=== PATIENT | male | born 1950 | race Caucasian/White ===

== ENCOUNTER 2025-05-23 08:12 | Emergency (ER) | payer MEDICARE, OTHER, SELFPAY ==
[2025-05-23 08:15] VITALS: BP 147/91
--- NOTE | 2025-05-23 09:09 | ED.GENMED ---
History of Present Illness
<Teddy Lindo MD, Resident - Last Filed: 05/23/25 15:44>
General
Chief Complaint: Musculo-Skeletal Complaint
Time Seen by Provider: 05/23/25 09:09
History of Present Illness
History of Present Illness:
75 yo M PMH PFO, stroke in 2022 with no residual deficits presenting after slipping on ice, falling entirely on right side, did not break the fall with his right arm, while shoveling. denies any prodromal symptoms of palpitations, presyncope,
syncope or focal weakness.
denies headstrike, denies syncope. denies neck pain, back pain. or any focal tenderness in right wrist or elbow or knee
denies headaches
he is reporting ROM deficits in right shoulder, he reports minimal pain at rest in shoulder and hip, mainly with movement.
the incident happend thursday, but he is coming in today because ROM has not improved, and family noticed that his right leg bends differently when seated. he is able to ambulate, but family reports not well.
takes baby aspirin daily, but denies other blood thinners (apixaban, rivaroxaban, clopidogrel etc).
<Zac Musa MD - Last Filed: 05/23/25 12:59>
General
Source: patient
Exam Limitations: none
Nursing documentation reviewed up to this point in time: agreed with
Past History
<Teddy Lindo MD, Resident - Last Filed: 05/23/25 15:44>
Past History
ED Past Medical History: CVA (stroke without residual deficits 2022) and Other (PFO)
Review of Systems
<Teddy Lindo MD, Resident - Last Filed: 05/23/25 15:44>
Review of Systems
Constitutional: Reports no symptoms
EENT: Reports no symptoms
Respiratory: Reports no symptoms
Cardiac: Reports no symptoms
ABD/GI: Reports no symptoms
Musculoskeletal: Reports joint pain (R shoulder and R hip)
Neurological: Reports no symptoms
Phy Exam
<Teddy Lindo MD, Resident - Last Filed: 05/23/25 15:44>
Physical Exam
Physical Exam:
VS: 147/91; HR 65
General: no acute distress
CV: no murmurs on my exam
Pulm: CTAB
Abd: no tenderness to palaption
MSK: tenderness to palpation over right coracoid process; tenderness to palpation over right hip with overlying bruise visible. shoulder ROM limited: cannot fully externally rotate right shoulder, cannot abduct right shoulder beyond 90 degrees.
right leg at rest is deviated to the right, and right leg is 4/5 strength compared to left leg 5/5 strength to hip flexion. no deficits to at knee, ankle, elbow, wrist joints. no sensory deficits grossly appreciated. no tenderness to palpation over
the neck, no tenderness to palpation of clavicles b/l
Course
<Teddy Lindo MD, Resident - Last Filed: 05/23/25 15:44>
Orders/Labs/Results
Orders:
Orders
05/23/25 08:19
Shoulder, Right, Trauma [CR Shoulder, Trauma - Right] Urgent
Comment:
Reason For Exam: fall, limited ROM
05/23/25 08:20
Hip, Right 2-3 Views [CR Hip - RT w/wo Pel 2-3 Vw*] Urgent
Comment: limited ROM
Reason For Exam: pain after a fall
Include a pelvis x-ray?: Yes
05/23/25 10:07
Acetaminophen [Tylenol] 650 mg PO NOW STA
05/23/25 10:08
CT Pelvis W/o Iv Contrast Urgent
Comment:
Reason For Exam: continued R hip pain after fall
05/23/25 12:37
Physical Therapy Consult [Pt Eval And Treat] Urgent
Activity Level: Ambulate
Vital Signs
Initial and Last Documented VS:
Initial Vital Signs
Temp Pulse Resp BP Pulse Ox
98.2 F 65 20 147/91 98
05/23/25 08:15 05/23/25 08:15 05/23/25 08:15 05/23/25 08:15 05/23/25 08:15
Last Documented Vital Signs
Temp Pulse Resp BP Pulse Ox
98.2 F 67 17 137/92 97
05/23/25 08:15 05/23/25 12:45 05/23/25 12:45 05/23/25 12:00 05/23/25 12:45
<Zac Musa MD - Last Filed: 05/23/25 12:59>
Orders/Labs/Results
Orders:
Orders
05/23/25 08:19
Shoulder, Right, Trauma [CR Shoulder, Trauma - Right] Urgent
Comment:
Reason For Exam: fall, limited ROM
05/23/25 08:20
Hip, Right 2-3 Views [CR Hip - RT w/wo Pel 2-3 Vw*] Urgent
Comment: limited ROM
Reason For Exam: pain after a fall
Include a pelvis x-ray?: Yes
05/23/25 10:07
Acetaminophen [Tylenol] 650 mg PO NOW STA
05/23/25 10:08
CT Pelvis W/o Iv Contrast Urgent
Comment:
Reason For Exam: continued R hip pain after fall
05/23/25 12:37
Physical Therapy Consult [Pt Eval And Treat] Urgent
Activity Level: Ambulate
Vital Signs
Initial and Last Documented VS:
Initial Vital Signs
Temp Pulse Resp BP Pulse Ox
98.2 F 65 20 147/91 98
05/23/25 08:15 05/23/25 08:15 05/23/25 08:15 05/23/25 08:15 05/23/25 08:15
Last Documented Vital Signs
Temp Pulse Resp BP Pulse Ox
98.2 F 67 17 137/92 97
05/23/25 08:15 05/23/25 12:45 05/23/25 12:45 05/23/25 12:00 05/23/25 12:45
<Teddy Lindo MD, Resident - Last Filed: 05/23/25 15:44>
MDM/Problems Addressed
Differential Diagnosis Includes:
rotator cuff tendinopathy, shoulder dislocation, hip dislocation or fracture, clavicular fracture, trochanteric bursitis
MDM/Problems Addressed:
75 yo M presenting with what appears to be a mechanical fall by slipping on ice. fell on his right side while shoveling, did not break his fall with his hand. no prodromal symptoms.
he has deficits to range of motion at the right shoulder and his right leg appears to sit out of alignment.
minimal pain at rest, mainly with motion/movement.
social: he lives with family and expressed that he will have support
Plan:
x-ray right hip: degenerative changes, no evidence of cortical fracture
x-ray right shoulder: degenerative changes, no acute osseous abnormality
Update:
to manage the shoulder pain, a sling with ice/rest/nsaids/physical therapy would be appropriate. Sling for the patient has been provided.
to manage the hip pain, patient and family are concerned about his ability to walk, CT pelvis w/o IV contrast ordered to evaluate for occult fracture
pain control: patient prefers only tylenol for now.
Update:
CT pelvis w/o IV contrast: no findings to suggest recent right hip fracture.
Physical therapy consulted and reports that patient was able to ambulate without difficulty, does not need assistive device. Appropriate to discharge.
Patient is medically stable for discharge and patient is okay to be discharged. Patient and family counselled to follow-up with PCP outpatient.
<Teddy Lindo MD, Resident - Last Filed: 05/23/25 15:44>
*Pulse Oximetry
SaO2: 98
Oxygen Mode of Delivery: Room air
Patient hypoxic: no
*Critical Care Note
Total Time (30-74mins, 75-104mins- exclusive of procedures): Not Applicable
ED Attending Note
<Teddy Lindo MD, Resident - Last Filed: 05/23/25 15:44>
-
Portions of this chart may have been created with voice recognition software.� Occasional wrong word or��sound alike� substitutions may have occurred due to the inherent limitations of voice recognition software.
<Zac Musa MD - Last Filed: 05/23/25 12:59>
ED Attending Note
Patient seen and examined by attending physician: Yes
ED Attending Note:
Patient presents ED secondary to persistent right shoulder and right hip/buttock pain, after slipping on icy surface and falling. Since then, patient has had persistent pain, especially with any movement. Patient does state that pain has improved
with administration of Motrin at home and reports minimal pain without movement. Denies any fever or chills. Denies loss of sensation or weakness. Denies back pain. Denies urinary or bowel incontinence.
Physical Exam
General: mild painful distress, not acutely ill. afebrile
Head: nc/at. eomi
Neck: supple. normal range of motion
Abdomen: normal bowel sounds. not tender.
Neuro: alert and oriented x 3. no focal neurological deficits
Skin: no rash
Psychiatric: well kept. interactive and cooperative
Extremities: ecchymosis/tenderness noted over right lower buttock/hip, without obvious deformity. normal range of motion. negative straight leg raise test. RUE: diffuse right shoulder tenderness to palpation, without deformity
Given patient's persistent pain, despite normal x-ray, decision made to perform CT pelvis without contrast, to evaluate for an occult fracture. Patient will require PT evaluation afterwards.
CT pelvis without acute findings.
Patient evaluated by physical therapy who feels the patient can be discharged before an appropriate outpatient follow-up. Does not feel the patient needs any assistance, i.e. walker, at this time. Patient advised to follow-up with PCP for
reevaluation. Continue to wear provided arm sling along with ice application, as well as Tylenol/ Motrin for symptomatic treatment. Patient expressed understanding at time of discharge, to the care of his family.
Discharge Plan
Departure
Patient Disposition: Home (Routine Discharge)
Date of Disposition: 05/23/25
Time of Disposition: 12:58
Patient with high blood pressure during this ER visit?: Yes
Condition: Fair
Discharge Problem:
Shoulder pain, Hip pain
Referrals:
Sukumar Mitchell MD [Family Provider]
Activity Restrictions/Additional Instructions:
You presented to the ER with shoulder and hip pain. You have been provided a sling for the shoulder pain, you may use over the counter medications (tylenol, ibuprofen) and ice. Physical therapy evaluated you and you were able to walk. Please
follow-up with your family doctor in 7-10 days to follow-up on your symptoms.
Interventions
Interventions:
*Neglect/Abuse Screening Last Done: 05/23/25 08:15
*ED COVID-19 Vaccine History Last Done: 05/23/25 12:47
*ED Influenza Vaccine History Last Done: 05/23/25 12:47
*Risk Screen - Suicide (C-SSRS) Last Done: 05/23/25 08:15
*Nursing Disposition Last Done: 05/23/25 13:02
Discharge Date and Time
Discharge Date/Time: 05/23/25 13:03
Print Language: BELARUSIAN
[2025-05-23 09:33] VITALS: BP 127/79
[2025-05-23 10:00] VITALS: BP 123/84
[2025-05-23] MEDS: TYLENOL 650 MG PO (10:27)
[2025-05-23 11:00] VITALS: BP 122/94
[2025-05-23 12:00] VITALS: BP 137/92
== END 2025-05-23 13:03 | disposition home or self-care (01) ==
LOC: EMR 08:12
PROVIDERS: EMERGENCY PHYSICIAN Emergency Medicine; FAMILY PHYSICIAN Internal Medicine
DX: S70.01XA Contusion of right hip, initial encounter (principal); M25.511 Pain in right shoulder; W00.0XXA Fall on same level due to ice and snow, initial encounter; Z86.73 Personal history of transient ischemic attack (TIA), and cerebral infarction without residual deficits; Z79.82 Long term (current) use of aspirin
CPT/HCPCS: 99284; 72192; 73030; 73502